=== PATIENT | male | born 1990 | race Caucasian/White ===

== ENCOUNTER 2018-07-24 08:28 | Emergency (ER) | payer BC ==
[2018-07-24 08:30] VITALS: BMI 23.2
[2018-07-24 08:45] VITALS: O2SAT 98
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
[2018-07-24 10:14] VITALS: BP 120/70; PULSE 78; RESP 20; TEMP 98.6
== END 2018-07-24 10:14 | disposition home or self-care (01) ==
LOC: H.ER 08:28
DX: S50.01XA Contusion of right elbow, initial encounter (principal); S60.221A Contusion of right hand, initial encounter; V43.52XA Car driver injured in collision with other type car in traffic accident, initial encounter